=== PATIENT | female | born 1955 | race Caucasian/White ===

== ENCOUNTER → 2021-06-04 14:58 | Outpatient (CLI) | payer SELFPAY ==
--- NOTE | ~2021-06-04 | MM_ITS ---
EXAMINATION: MM screening [facility] BI w jarett HISTORY: Screening TECHNIQUE: Craniocaudal and mediolateral oblique 3-D tomosynthesis images were obtained and synthetic 2-D images were generated. CAD analysis was submitted and interpreted. COMPARISON: Comparison to multiple prior studies sequentially, with oldest reviewed study dated 05/31. BREAST PARENCHYMAL COMPOSITION: The breasts are extremely dense, which lowers the sensitivity of mamm ography. FINDINGS: There is no evidence of suspicious mass, calcification, or architectural distortion to sugg est malignancy in either breast. There has been no suspicious interval change. IMPRESSION: 1. No mammographic evidence of malignancy. 2. Recommend routine screening mammography in one year. BI-RADS Category 1: Negative Reviewed, dictated and finalized at location A.
== END ==
PROVIDERS: PCP Internal Medicine; Visit Provider Internal Medicine
DX: Z12.31 Encounter for screening mammogram for malignant neoplasm of breast (principal)
CPT/HCPCS: 77063; 77067

== ENCOUNTER → 2022-10-05 13:37 | Outpatient (CLI) | payer MEDICARE, SELFPAY ==
--- NOTE | ~2022-10-05 | MM_ITS ---
EXAMINATION: MM screening [facility] BI w jarett HISTORY: Screening mammogram TECHNIQUE: Craniocaudal and mediolateral oblique 3-D tomosynthesis images were obtained and synthetic 2-D images were generated. CAD analysis was submitted and interpreted. COMPARISON: 06/04/2021, 06/02/2017, 02/19/2016 BREAST PARENCHYMAL COMPOSITION: The breasts are heterogeneously dense, which may obscure small masses . FINDINGS: No suspicious mass, calcification, or architectural distortion are identified in either phuong ast to suggest malignancy. There has been no suspicious interval change. IMPRESSION: 1. No mammographic evidence of malignancy. 2. Recommend routine screening mammography in one year. BI-RADS Category 1: Negative Reviewed, dictated and finalized at location A. 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
== END ==
PROVIDERS: PCP Internal Medicine; Visit Provider Internal Medicine
DX: Z12.31 Encounter for screening mammogram for malignant neoplasm of breast (principal)
CPT/HCPCS: 77063; 77067

== ENCOUNTER → 2023-09-29 13:07 | Outpatient (CLI) | payer MEDICARE, SELFPAY ==
--- NOTE | ~2023-09-29 | XR_ITS ---
EXAMINATION: XR cervical spine 4-5V DATE: 09/29/2023 13:34 INDICATION: Radiculopathy, cervical region. TECHNIQUE: 4 views of cervical spine were obtained. COMPARISON: None. FINDINGS: There is mild kyphosis of cervical spine. Vertebral body heights are normal. There is moder ately decreased disc height at C4-C5, severely decreased disc height at C5-C6, and moderately decreas ed disc height at C6-C7. There is multilevel uncovertebral joint osteoarthritis, severe bilaterally f rom C4-C5 through C6-C7. There is multilevel mild facet joint osteoarthritis. There is mild central c anal stenosis at C4-C5, C5-C6, and C6-C7. No prevertebral soft tissue swelling. IMPRESSION: 1. Severe cervical spondylosis. Reviewed, dictated and finalized at location A. 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
--- NOTE | ~2023-09-29 | DEXA_ITS ---
Bone Density Report Name: JENNYFER FORBES Age: 68 Sex: Female Ethnicity: White Date of : 1955 Indication: postmenopausal; screening for osteoporosis; Referring Provider: Solitario, Kristen Conde Study: Bone densitometry was performed. Exam Date: September 29, 2023 Accession number: [id number] Bone Density: Region BMD T-score Z-score Classification AP Spine (L1-L4) 1.080 0.3 2.2 Normal Femoral Neck (Left) 0.679 -1.5 0.1 Osteopenia Total Hip (Left) 0.906 -0.3 1.0 Normal Femoral Neck (Right) 0.699 -1.3 0.2 Osteopenia Total Hip (Right) 0.928 -0.1 1.2 Normal Total Hip Mean 0.917 -0.2 1.1 Normal World Health Organization criteria for BMD impression classify patients as: Normal (T-score at or above -1.0), Osteopenia (T-score between -1.0 and -2.5), or Osteoporosis (T-score at or below -2.5). 10-year Fracture Risk(1): Major Osteoporotic Fracture 9.2% Hip Fracture 1.1% Reported Risk Factors: [place] (), Neck BMD=0.679, BMI=26.6 (1) FRAX(R) Version 3.08. Fracture probability calculated for an untreated patient. Fracture probability may be lower if the patient has received treatment. Previous Exams: Region Exam Age BMD T-score BMD Change BMD Change Date g/cm2 vs Baseline vs Previous AP Spine(L1-L4) 09/29/2023 68 1.080 0.3 -0.088* -0.110* 05/23/2013 58 1.191 1.3 0.023 0.023 11/28/2007 52 1.168 1.1 Total Hip(Left) 09/29/2023 68 0.906 -0.3 -0.147* -0.115* 05/23/2013 58 1.020 0.6 -0.032* -0.032* 11/28/2007 52 1.053 0.9 Total Hip(Right) 09/29/2023 68 0.928 -0.1 -0.141* -0.133* 05/23/2013 58 1.061 1.0 -0.008 -0.008 11/28/2007 52 1.069 1.0 *Denotes significance at 95% confidence level, LSC for AP Spine = 0.022 g/cm2, LSC for Total Hip = 0.027 g/cm2 Clinical Information Provided by Patient: Has used the following medications: Vitamin D, Calcium Patient maximum height was 63 Menopause Age: 57 Does not regularly consume dairy products Drinks caffeinated beverages Onset of menses at age 14 Number of children 2 Impression: The patient has low bone mass, based on the Left Femoral Neck T-score. The patient has an estimated ten-year risk of hip fracture of 1.1% and an estimated ten-year risk of major fracture of 9.2%, based on the WHO FRAX algorithm. The BMD for the AP Spine(L1-L4) decreased, changing
== END ==
PROVIDERS: PCP Internal Medicine; Visit Provider Internal Medicine
DX: Z78.0 Asymptomatic menopausal state (principal); M47.22 Other spondylosis with radiculopathy, cervical region; M85.852 Other specified disorders of bone density and structure, left thigh; M85.851 Other specified disorders of bone density and structure, right thigh
CPT/HCPCS: 72050; 77080

== ENCOUNTER 2023-11-24 14:41 | Outpatient (CLI) | payer MEDICARE, SELFPAY ==
--- NOTE | ~2023-11-24 | MM_ITS ---
EXAMINATION: MM screening [facility] BI w jarett HISTORY: Screening mammogram TECHNIQUE: Craniocaudal and mediolateral oblique 3-D tomosynthesis images were obtained and synthetic 2-D images were generated. Bilateral rotated lateral CC views. CAD analysis was submitted and interp reted. COMPARISON: 10/05/2022, 06/04/2021 bilateral screening mammogram examinations BREAST PARENCHYMAL COMPOSITION: The breasts are heterogeneously dense, which may obscure small masses . FINDINGS: There is no evidence of suspicious mass, calcification, or architectural distortion to sugg est malignancy in either breast. There has been no suspicious interval change. IMPRESSION: 1. No mammographic evidence of malignancy. 2. Recommend routine screening mammography in one year. BI-RADS Category 1: Negative Reviewed, dictated and finalized at location A.
== END 2023-11-24 14:42 ==
LOC: MICIMG 14:41
PROVIDERS: PCP Internal Medicine; Visit Provider Internal Medicine
DX: Z12.31 Encounter for screening mammogram for malignant neoplasm of breast (principal)
CPT/HCPCS: 77063; 77067